=== PATIENT | female | born 1940 | race Two or more races ===

== ENCOUNTER 2024-02-01 22:17 | Inpatient (IN) | payer OTHER ==
[~2024-02-01] VITALS: Ht 152.4 cm; Wt 98.4 kg
[2024-02-01 23:03] VITALS: PULSE 125; RESP 20; O2SAT 93
[2024-02-01] MEDS: cloNIDine HCL 0.1 MG TAB PO ONE (23:29)
[2024-02-01 23:41] LABS: Basophils # (auto) 0 10 ^3/uL (0-0.2); Basophils % (auto) 0.3 % (0.0-2.0); Eosinophils # (auto) 0 10 ^3/uL (0-0.8); Eosinophils % (auto) 0.1 % (0.0-7.0); Hematocrit 43.4 % (36.0-46.0); Lymphocytes # (auto) 0.6 10 ^3/uL (0.4-5.4); Lymphocytes % (auto) 4.6 % (10.0-50.0); Mean Corpuscular Hemoglobin 27.3 pg (28.0-32.0); Mean Corpuscular Hgb Conc. 32.3 g/dL (32.0-36.0); Mean Corpuscular Volume 84.4 fL (80.0-100.0); Monocytes # (auto) 1.1 10 ^3/uL (0-1.3); Monocytes % (auto) 9.1 % (0.0-12.0); Neutrophils # (auto) 10.2 10 ^3/uL (1.6-8.6); Neutrophils % (auto) 85.9 % (37.0-80.0); Nucleated Red Blood Cells % 0.1 %; Red Blood Cells 5.15 10^6/uL (4.0-5.20); Red Cell Distribution Width 14.4 % (11.8-14.3); White Blood Cell 11.9 10^3/uL (4.4-10.8)
[2024-02-02 00:03] LABS: Alanine Aminotransferase 28 U/L (7-40); Albumin 4.4 g/dL (3.2-4.8); Alkaline Phosphatase 91 U/L (46-116); Anion Gap 10 (5-15); Aspartate Aminotransferase 34 U/L (13-40); Bilirubin, Total 0.9 mg/dL (0.2-1.0); Blood Urea Nitrogen 16 mg/dL (9-23); Calcium 10.8 mg/dL (8.7-10.4); Carbon Dioxide 24 mmol/L (20-30); Chloride 105 mmol/L (98-107); Glucose 114 mg/dL (74-106); Potassium 3.5 mmol/L (3.5-5.1); Sodium 139 mmol/L (136-145); Total Protein 7.7 g/dL (5.7-8.2)
[2024-02-02] MEDS: HYDROcodone-ACET 10/325MG TAB PO ONE (01:50)
[2024-02-02] MEDS ORDERED: ONDANSETRON HCL 4 MG/2 ML VIAL IV PRN (06:30)
[2024-02-02] MEDS ORDERED: NITROGLYCERIN 0.4 MG SL TAB SL PRN (06:30)
[2024-02-02] MEDS: SOD CHL 0.45% 1,000 ML IV ONE (06:44)
[2024-02-02 07:40] VITALS: PULSE 92; RESP 18; O2SAT 92
[2024-02-02 07:47] LABS: Urine Bacteria None Seen /hpf (None Seen)
[2024-02-02 08:11] LABS: Urine Blood Negative /uL (Negative); Urine Clarity Turbid (Clear); Urine Color Yellow (Yellow); Urine Protein, UAD Negative (Negative); Urine Specific Gravity 1.018 (1.001-1.035); Urine Urobilinogen Normal (Negative); Urine WBC 1 /hpf (0 - 5)
[2024-02-02 09:25] VITALS: BP_SYST 130; BP_SYST 150; BP_DIAS 65; BP_DIAS 86; PULSE 70; PULSE 94; RESP 16; TEMP 98; TEMP 98.1; O2SAT 96; O2SAT 99
[2024-02-02 12:00] VITALS: BP 144/74; PULSE 89; RESP 16; TEMP 98.3; O2SAT 98
[2024-02-02 16:00] VITALS: BP 154/84; PULSE 95; RESP 18; TEMP 98.5; O2SAT 99
[2024-02-02] MEDS: MORPHINE SULFATE INJ 2 MG/ml SYRG IV PRN ×2 (16:08→21:41)
[2024-02-02 16:18] LABS: INR 1.24 (0.9-1.15); Prothrombin Time 12.9 sec (9.3-11.8)
[2024-02-02] MEDS ORDERED: PERCOT PO (17:00)
[2024-02-02] MEDS ORDERED: PREG25CA28 PO (17:00)
[2024-02-02] MEDS ORDERED: DULO1CAP5 PO (17:00)
[2024-02-02] MEDS ORDERED: ROPI0.5T26 PO (17:00)
[2024-02-02] MEDS ORDERED: CYA100I IM (17:00)
[2024-02-02 20:00] VITALS: PULSE 108; PULSE 77; RESP 18; O2SAT 95
[2024-02-02 21:00] VITALS: BP 147/82; PULSE 102; RESP 20; TEMP 97.7; O2SAT 95
[2024-02-03] VITALS (21 sets, daily range): BP systolic 104–167; BP diastolic 62–83; PULSE 80–132; RESP 12–21; TEMP 97.9–98.7; O2SAT 89–100
[2024-02-03 06:19] LABS: Basophils # (auto) 0 10 ^3/uL (0-0.2); Basophils % (auto) 0.2 % (0.0-2.0); Eosinophils # (auto) 0.3 10 ^3/uL (0-0.8); Eosinophils % (auto) 3.8 % (0.0-7.0); Hematocrit 38.1 % (36.0-46.0); Hemoglobin 12.7 g/dL (12.2-16.2); Lymphocytes # (auto) 0.7 10 ^3/uL (0.4-5.4); Lymphocytes % (auto) 8.7 % (10.0-50.0); Mean Corpuscular Hemoglobin 28.6 pg (28.0-32.0); Mean Corpuscular Hgb Conc. 33.3 g/dL (32.0-36.0); Monocytes # (auto) 1.1 10 ^3/uL (0-1.3); Monocytes % (auto) 13.9 % (0.0-12.0); Neutrophils # (auto) 5.9 10 ^3/uL (1.6-8.6); Neutrophils % (auto) 73.4 % (37.0-80.0); Nucleated Red Blood Cells % 0.1 %; Red Blood Cells 4.43 10^6/uL (4.0-5.20); Red Cell Distribution Width 14.1 % (11.8-14.3); White Blood Cell 8.1 10^3/uL (4.4-10.8)
[2024-02-03 06:43] LABS: Alanine Aminotransferase 19 U/L (7-40); Albumin 3.7 g/dL (3.2-4.8); Alkaline Phosphatase 72 U/L (46-116); Anion Gap 8 (5-15); Aspartate Aminotransferase 30 U/L (13-40); BUN/Creatinine Ratio 11.8 (10.0-20.0); Blood Urea Nitrogen 9 mg/dL (9-23); Calcium 9.1 mg/dL (8.5-10.1); Carbon Dioxide 23 mmol/L (20-30); Chloride 106 mmol/L (98-107); Glucose 88 mg/dL (74-106); Potassium 3.8 mmol/L (3.5-5.1); Sodium 137 mmol/L (136-145); Total Protein 6.8 g/dL (5.7-8.2)
[2024-02-03 06:51] LABS: Bilirubin, Total 1.3 mg/dL (0.2-1.0)
[2024-02-03] MEDS ORDERED: fentaNYL CITRATE 100 MCG/2 ML VL ONE (09:38)
[2024-02-03] MEDS ORDERED: MIDAZOLAM HCL 2MG/2ML 2ml VIAL (1mg/ml) ONE (09:39)
[2024-02-03] MEDS ORDERED: PROPOFOL 10 MG/ML 20 ML IV ONE (09:41)
[2024-02-03] MEDS ORDERED: MORPHINE SULF PF 5 MG/10 ML VIAL ONE (09:41)
[2024-02-03] MEDS ORDERED: ceFAZolin 1GM VL ONE (10:08)
[2024-02-03] MEDS ORDERED: METOCLOPRAMIDE HCL 5MG/ml INJ 2ml VIAL ONE (10:29)
[2024-02-03] MEDS ORDERED: ONDANSETRON HCL 4 MG/2 ML VIAL ONE (10:29)
[2024-02-03] MEDS ORDERED: KETOROLAC TROMETH 30 MG/ML 1ML VIAL ONE (10:36)
[2024-02-03] MEDS ORDERED: ePHEDrine SULFATE 50 MG/ML AMP ONE (10:36)
[2024-02-03] MEDS ORDERED: fentaNYL CITRATE 100 MCG/2 ML VL IV PRN (11:15)
[2024-02-03] MEDS ORDERED: HYDROmorphone HCL 2 MG/ML VL/or syr IV PRN (11:15)
[2024-02-03] MEDS: LACTATED RINGER'S 1,000 ML IV SCH (11:15)
[2024-02-03] MEDS ORDERED: NALOXONE HCL 0.4 MG/ML VIAL IV PRN (11:15)
[2024-02-03] MEDS ORDERED: ONDANSETRON HCL 4 MG/2 ML VIAL IV ONE (11:15)
[2024-02-03] MEDS: SODIUM CHLOR 0.9% PF (SALINE LOCK) 10ML VIAL/SYR IV SCH (13:24)
[2024-02-03] MEDS: ceFAZolin 2 GM/D5W50ml 50 ML IV SCH (17:42)
[2024-02-04] VITALS (17 sets, daily range): BP systolic 107–185; BP diastolic 62–95; PULSE 55–130; RESP 16–20; TEMP 98.7–99.5; O2SAT 89–99
[2024-02-04] MEDS: ACETAMINOPHEN 325 MG TAB PO PRN (03:04)
[2024-02-04] MEDS: ceFAZolin 1GM/50ML 50 ML IV ONE ×2 (03:05→04:46)
[2024-02-04] MEDS: hydrALAZINE HCL 20 MG/ML VL IV PRN (04:04)
[2024-02-04 04:21] LABS: Basophils # (auto) 0 10 ^3/uL (0-0.2); Basophils % (auto) 0.5 % (0.0-2.0); Eosinophils # (auto) 0.2 10 ^3/uL (0-0.8); Eosinophils % (auto) 2.5 % (0.0-7.0); Hematocrit 32.8 % (36.0-46.0); Hemoglobin 10.8 g/dL (12.2-16.2); Lymphocytes # (auto) 0.7 10 ^3/uL (0.4-5.4); Lymphocytes % (auto) 7.7 % (10.0-50.0); Mean Corpuscular Hemoglobin 28.2 pg (28.0-32.0); Mean Corpuscular Hgb Conc. 32.9 g/dL (32.0-36.0); Mean Corpuscular Volume 85.9 fL (80.0-100.0); Monocytes # (auto) 1.3 10 ^3/uL (0-1.3); Monocytes % (auto) 15.4 % (0.0-12.0); Neutrophils # (auto) 6.3 10 ^3/uL (1.6-8.6); Neutrophils % (auto) 73.9 % (37.0-80.0); Red Blood Cells 3.82 10^6/uL (4.0-5.20); Red Cell Distribution Width 14.2 % (11.8-14.3); White Blood Cell 8.5 10^3/uL (4.4-10.8)
[2024-02-04 04:32] LABS: Anion Gap 6 (5-15); Carbon Dioxide 25 mmol/L (20-30); Chloride 106 mmol/L (98-107); Sodium 137 mmol/L (136-145)
[2024-02-04 04:33] LABS: Calcium 8.9 mg/dL (8.5-10.1)
[2024-02-04 04:38] LABS: BUN/Creatinine Ratio 16.5 (10.0-20.0); Blood Urea Nitrogen 14 mg/dL (9-23); Glucose 131 mg/dL (74-106)
[2024-02-04] MEDS: ENOXAPARIN SOD 40 MG/0.4 ML SYRINGE SC SCH (09:54)
[2024-02-04] MEDS: HYDROcodone-ACET 10/325MG TAB PO PRN (09:54)
[2024-02-04] MEDS: FAMOTIDINE 20 MG TAB PO ONE (10:55)
[2024-02-04] MEDS ORDERED: FAMOTIDINE 20 MG TAB PO SCH (22:00)
== END 2024-02-04 15:30 | DRG 481 ==
LOC: EDBD 22:17 → ER 22:17 → TELE 02-02 06:21 → TELE-WESTW 02-02 09:05
PROVIDERS: ADMIT Internal Medicine; ATTEND Internal Medicine
PROC: BQ13ZZZ Fluoroscopy of Right Femur (ICD-10-PCS; 2024-02-03)
PROC: 0QS636Z Reposition Right Upper Femur with Intramedullary Internal Fixation Device, Percutaneous Approach (ICD-10-PCS; principal; 2024-02-03 09:53)
DX: S72.141A Displaced intertrochanteric fracture of right femur, initial encounter for closed fracture (principal); D62 Acute posthemorrhagic anemia; Z68.41 Body mass index [BMI] 40.0-44.9, adult; I10 Essential (primary) hypertension; E78.00 Pure hypercholesterolemia, unspecified; E66.01 Morbid (severe) obesity due to excess calories; Z96.642 Presence of left artificial hip joint; W18.39XA Other fall on same level, initial encounter; Y93.89 Activity, other specified; Y92.098 Other place in other non-institutional residence as the place of occurrence of the external cause; Y99.8 Other external cause status
CPT/HCPCS: 36415; 73502; 76000; 80048; 80053; 81001; 83880; 84484; 85025; 85610; 87040; 93306; 97163; G0378; J0690; J1885; J2250; J2405; J2704